=== PATIENT | female | born 1930 ===

== ENCOUNTER 2016-09-03 13:10 | Day surgery (SDC) | payer MEDICARE, OTHER ==
[2016-08-26 14:14] VITALS: BMI 29.2
[2016-09-03] MEDS ORDERED: Bupivacaine/Epi 0.25%-1:200,000 10 ml PF inj IJ ONE (14:17)
[2016-09-03] MEDS ORDERED: Lidocaine 1% Inj (20ml) ONE (14:17)
[2016-09-03] MEDS ORDERED: Vancomycin 1 gm/D5W 200 ml 1 GM/200 ML BAG IVPB ONE (14:20)
--- NOTE | 2016-09-03 14:52 | PCM.SURG1 ---
Surgeon's Initial Post Op Note - Surgeon's Notes Surgeon: Denisa Chemistry Department Chair: n/a Pre-Operative Diagnosis: lesion of right face Operative Findings: lesion of right face Post-Operative Diagnosis: lesion of right face Operation Performed: removal of lesion of right face Specimen/Specimens Removed: lesion of right face Estimated Blood Loss: EBL {In ML}: 5 Date of Surgery/Procedure: 09/03/16 Time of Surgery/Procedure: 14:20
[2016-09-03] MEDS ORDERED: Oxycodone/Acetaminophen 5/325 mg Tab PO PRN (14:53)
[2016-09-03 15:15] VITALS: BP 169/60; PULSE 80; RESP 20; TEMP 97.7; O2SAT 98
--- NOTE | 2016-09-03 18:25 | OP ---
PROCEDURE DATE: 09/03/2016 PREOPERATIVE DIAGNOSIS: Right lower face lesion. POSTOPERATIVE DIAGNOSIS: Right lower face lesion. PROCEDURE DONE: Excision of right lower facial lesion, 2 x 2 cm size. SURGEON: Sandip Crawley M.D. [employer] OPERATOR: None. ANESTHESIA: Local anesthesia. ESTIMATED BLOOD LOSS: Around 5 mL. DRAINS: None. PATHOLOGY: Skin lesion was sent for the pathology. COMPLICATIONS: None. INTRAOPERATIVE FINDINGS: The patient had 2 x 2 cm, right lower face lesion. INTRAOPERATIVE STEPS: This is an [id number] who was diagnosed with right facial lesion. The patient was consented for excision of the lesion, brought to the OR, placed supine on the operating table. After prepping and draping the right lower face, the local anesthesia was injected, elliptica l 3 x 2 cm incision was made and the lesion was completely excised and it was sent to the table for t he pathology. The wound was closed in 2 layers; the skin with a 4-0 Monocryl and 4-0 nylon and dry s terile dressing was applied. The patient tolerated the procedure well. Count of instruments and gau ze was correct. There was no apparent complication. Sandip Crawley MD cc: [id number] TT: 09/03/2016 18:24:06 jn
== END 2016-09-03 15:15 | disposition home or self-care (01) ==
LOC: C.SDS 13:10
PROVIDERS: ATTEND Surgery Surgical Critical Care
DX: D23.39 Other benign neoplasm of skin of other parts of face (principal); L98.9 Disorder of the skin and subcutaneous tissue, unspecified